=== PATIENT | female | born 1990 | race Caucasian/White ===

== ENCOUNTER 2019-01-02 14:27 | Emergency (ER) | payer OTHER ==
[~2019-01-02] VITALS: Ht 162.6 cm; Wt 61.2 kg
[2019-01-02] MEDS ORDERED: MIRENA1 EACH IY (15:17)
[2019-01-02] MEDS ORDERED: IBUP600 PO (15:29)
[2019-01-02] MEDS ORDERED: Ultram50 MG PO (15:45)
== END 2019-01-02 15:44 | disposition home or self-care (01) ==
LOC: ER 14:27
DX: S39.012A Strain of muscle, fascia and tendon of lower back, initial encounter (principal); X58.XXXA Exposure to other specified factors, initial encounter; Z79.899 Other long term (current) drug therapy
CPT/HCPCS: 96372; 99283-25; J1100; J1885